=== PATIENT | male | born 1985 | race American Indian/Alaskan Native ===

== ENCOUNTER 2020-09-17 16:05 | Emergency (ER) | payer BC ==
[~2020-09-17] VITALS: Ht 177.8 cm; Wt 88.5 kg
[2020-09-17] MEDS ORDERED: CEPH500 PO (18:52)
== END 2020-09-17 19:13 | disposition home or self-care (01) ==
LOC: ER 16:05
DX: L03.311 Cellulitis of abdominal wall (principal)
CPT/HCPCS: 76705; 99283-25; A9270